=== PATIENT | male | born 1990 | race Caucasian/White ===

== ENCOUNTER → 2019-02-17 | Outpatient (CLI) | payer OTHER ==
--- NOTE | 2019-02-17 17:42 | PCVCIMAG ---
APPROVED REPORT Patient Location: Echo lab Room #: 2 Stress Nurse: Tierra Joaquin RN INDICATIONS: Palpitations,chest tightness,near syncope The patient exercised according to the MARY protocol for 10:15 mins; achieving a work level of 13.4 METS. The resting heart rate of 96 bpm trevor to a maximum heart rate of 193 bpm. This value represents 100% of the maximal, age-predicted heart rate. The resting blood pressure of 112/74 mmHg, trevor to a maximum blood pressure of 178/72 mmHg. The exercise test was stopped due to fatigue. Resting EKG: Sinus rhythm normal tracing Stress EKG: No significant dysrhythmias. Rare isolated premature ventricular complexes. No ST segment shifts diagnostic of myocardial ischemia. In the recovery phase, Davonte developed dizziness, palpitations, near syncope and symptoms similar to initial presentation. No blood pressure fluctuations were identified, no dysrhythmias other than sinus tachycardia. Symptoms resolved spontaneously without specific intervention. Conclusion 1. Maximal treadmill exercise study negative for exercise-induced ischemia or dysrhythmias. 2. No subjective signs of ischemia. Study associated with good exercise capacity (13.4 METS) 3. Symptoms in the recovery phase did not correspond to dysrhythmias or hemodynamic changes.
== END | disposition home or self-care (01) ==
LOC: PCVCIMAG 16:04
PROVIDERS: ATTEND Internal Medicine
DX: R07.89 Other chest pain (principal); R55 Syncope and collapse; R00.2 Palpitations; R42 Dizziness and giddiness; E78.5 Hyperlipidemia, unspecified; Z82.49 Family history of ischemic heart disease and other diseases of the circulatory system; Z88.8 Allergy status to other drugs, medicaments and biological substances; Z87.891 Personal history of nicotine dependence; Z79.899 Other long term (current) drug therapy
CPT/HCPCS: 93017

== ENCOUNTER → 2019-02-23 | Outpatient (CLI) | payer OTHER ==
--- NOTE | 2019-02-23 09:30 | PCVCIMAG ---
APPROVED REPORT Study performed: 02/23/2019 08:44:16 EXAM: Comprehensive 2D, Doppler, and color-flow Echocardiogram Patient Location: Echo lab Status: routine BSA: 2.20 HR: 80 bpmBP: 122/99 mmHg Rhythm: NSR Other Information Study Quality: Technically Difficult Indications Palpitations Syncope Chest Pain Hyperlipidemia 2D Dimensions IVSd: 8.03 (7-11mm)LVOT Diam: 21.46 (18-24mm) LVDd: 51.59 mm PWd: 7.78 (7-11mm)Ascending Ao: 30.76 (22-36mm) LVDs: 41.05 (25-40mm) Left Atrium: 32.31 (27-40mm) Aortic Root: 29.21 mm LV Single Plane 4CH: 47.96 % LV Single Plane 2CH: 53.33 % Biplane EF: 48.5 % Volumes Left Atrial Volume (Systole) Single Plane 4CH: 22.43 mLSingle Plane 2CH: 48.57 mL LA ESV Index: 16.00 mL/m2 Aortic Valve AoV Peak Shaheed.: 1.28 m/s AO Peak Gr.: 6.51 mmHgLVOT Max P.64 mmHg LVOT Max V: 0.95 m/s TANIYA Vmax: 2.70 cm2 TDI Medial E' Shaheed.: 0.10 m/s Lateral E' Shaheed.: 0.08 m/s Pulmonary Valve PV Peak Gr.: 4.56 mmHg Pulmonary Vein P Vein S: 0.56 m/sP Vein A: 0.36 m/s P Vein D: 0.57 m/sP Vein A Dur.: 69.2 msec P Vein S/D Ratio: 0.98 Tricuspid Valve TR Peak Shaheed.: 2.27 m/s TR Peak Gr.: 20.57 mmHg Left Ventricle The left ventricle is normal size. There is normal LV segmental wall motion. There is normal left ventricular wall thickness. Left ventricular systolic function is normal. The left ventricular ejection fraction is within the normal range. LVEF 60%. The left ventricular diastolic function is normal. Right Ventricle The right ventricle is normal size. The right ventricular systolic function is normal. Atria The left atrium size is normal. The right atrium size is normal. Aortic Valve The aortic valve is normal in structure. No aortic regurgitation is present. There is no aortic valvular stenosis. Mitral Valve The mitral valve is normal in structure. There is no mitral valve regurgitation noted. No evidence of mitral valve stenosis. Tricuspid Valve The tricuspid valve is normal in structure. Trace tricuspid regurgitation. Pulmonary artery pressure is 28 mmHg. Pulmonic Valve The pulmonary valve is normal in structure. There is no pulmonic valvular regurgitation. Great Vessels The aortic root is normal in size. IVC is normal in size and collapses >50% with inspiration. Pericardium There is no pericardial effusion. <Conclusion> 1. Normal echocardiogram with Doppler. Ejection fraction 60% 2. Pulmonary artery pressure of 28 mmHg 3. No pericardial effusion
== END | disposition home or self-care (01) ==
LOC: PCVCIMAG 08:34
PROVIDERS: ATTEND Internal Medicine
DX: R00.2 Palpitations (principal); R55 Syncope and collapse; R07.9 Chest pain, unspecified; E78.5 Hyperlipidemia, unspecified
CPT/HCPCS: 93306